=== PATIENT | female | born 1950 | race Caucasian/White ===

== ENCOUNTER 2020-10-17 05:22 | Emergency (ER) | payer MEDICARE, SELFPAY ==
[2020-10-17 05:23] VITALS: BP 158/91; PULSE 78; RESP 16; TEMP 36.4; O2SAT 96; BMI 26.9
--- NOTE | 2020-10-17 05:26 | CTR_ITS ---
PROCEDURE INFORMATION: Exam: CT Head Without Contrast Exam date and time: 10/17/2020 5:29 AM Age: 70 years old Clinical indication: Injury or trauma; Fall; Blunt trauma (contusions or hematomas); Prior surgery; Surgery type: Tumor resection; Patient HX: Patient rolled out of bed this morning and struck forehead on nightstand. C/O frontal head and neck pain. History of astrocytoma. TECHNIQUE: Imaging protocol: Computed tomography of the head without contrast. Radiation optimization: All CT scans at this facility use at least one of these dose optimization techniques: automated exposure control; mA and/or kV adjustment per patient size (includes targeted exams where dose is matched to clinical indication); or iterative reconstruction. COMPARISON: CT head wo con* [id number] 07/07/2016 10:33 AM RADIATION DOSE METRICS: Total DLP (mGy-cm): 941.81 FINDINGS: Brain: There is extensive hypodensity of the right frontal parietal and temporal white matter with extension the hypoattenuation to occlude the white matter of the left frontal lobe. This finding is more extensive today compared with 07/07/2016. There is a 11.6 mm right to left midline shift of the septum pellucidum. This finding is essentially stable compared with previous examination. Cerebral ventricles: There is slit like effacement the anterior horn, body and temporal horns the right ventricle. The 3rd ventricle is displaced to the left approximately 7.5 mm. 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 A follow-up pre and post gadolinium MRI the brain is suggested. Bones/joints: Status post remote right frontal craniotomy. Paranasal sinuses: Visualized sinuses are unremarkable. No fluid levels. Mastoid air cells: Visualized mastoid air cells are well aerated. Soft tissues: Unremarkable. CT/CT head wo con* [id number] IMPRESSION: There are findings that are worrisome for recurrence the patient's known astrocytoma with worsening vasogenic edema within the right frontal, parietal and temporal lobe with extension into the left frontal lobe today. There is mass effect with shift of the septum pellucidum and 3rd ventricle to the left. Further evaluation is finding with pre and post gadolinium MRI imaging of the brain is suggested. Radiation Dose CTDIVOL = (mGy): DLP = 941.81 (mGy-cm)
--- NOTE | 2020-10-17 05:26 | CTR_ITS ---
PROCEDURE INFORMATION: Exam: CT Cervical Spine Without Contrast Exam date and time: 10/17/2020 5:29 AM Age: 70 years old Clinical indication: Injury or trauma; Fall; Blunt trauma; Patient HX: Patient rolled out of bed this morning and struck forehead on nightstand. C/O frontal head and neck pain. History of astrocytoma. C-collar in place. TECHNIQUE: Imaging protocol: Computed tomography images of the cervical spine without contrast. Radiation optimization: All CT scans at this facility use at least one of these dose optimization techniques: automated exposure control; mA and/or kV adjustment per patient size (includes targeted exams where dose is matched to clinical indication); or iterative reconstruction. COMPARISON: No relevant prior studies available. RADIATION DOSE METRICS: Total DLP (mGy-cm): 683.15 FINDINGS: Bones/joints: No acute fracture. Normal alignment. Discs/Spinal canal/Neural foramina: A diffuse loss of disc height is seen within the cervical spine, most prominent from C5-C7 compatible with degenerative disc disease. Lungs: Lung apices are normal. Soft tissues: Unremarkable. CT/CT cervical spin wo con* [id number] IMPRESSION: There are no acute cervical findings. Radiation Dose CTDIVOL = (mGy): DLP = 683.15 (mGy-cm)
--- NOTE | 2020-10-17 05:27 | W.ED.HEATRA ---
Documented by User: José Dave MD 10/17/20 05:32 HPI - Head Injury General: Chief complaint: Fall Stated complaint: FALL Time Seen by Provider: 10/17/20 05:23 Source: patient and EMS Mode of arrival: EMS Limitations: no limitations History of Present Illness: HPI Narrative: 70-year-old female has a history of astrocytoma that was removed back in 2018 and she currently lives in [facility]. EMS was called there she had fell out of her bed and hit her head on the nightstand. Patient states that she had just rolled out and did strike her head and has a contusion to her forehead. States she has a headache that is mild she rates a 4 out of 10 along with some neck pain. She denies any other injuries. She denies any pain to her hips or her upper extremities. She states she does have pain over her right mid thigh patient here is awake and alert and able answer all my questions appropriately. She has no altered mental status. Associated symptoms: Reports neck pain; Deny nausea or vomiting Review of Systems Const: Denies: fever(s), chills, body aches or change in appetite Eyes: Denies: blurry vision or eye discomfort ENMT: Denies: throat pain or dental pain Card: Denies: chest pain Resp: Denies: dyspnea GI: Denies: abdominal pain, nausea, vomiting or diarrhea : Denies: dysuria Musc: Reports: neck pain; Denies: back pain Skin/Breast: Denies: rash Neuro: Reports: headache(s) Psych: Denies: depression Vimal/Lymph: Denies: easy bruising All/Imm: Denies: urticaria Physical Exam Const: COMMON NORMALS: no acute distress, patient oriented x3 and healthy appearing HENMT: COMMON NORMALS: normocephalic HEAD & SCALP: normocephalic OTHER: Contusion to right forehead Eye: COMMON NORMALS: Equal, round and reactive pupils present and EOMs intact bilaterally PUPIL: Yes Equal, round and reactive pupils present Neck/C-Spine: OTHER: Slight tenderness to posterior neck Chest: COMMONS NORMALS: normal inspection of the chest and normal palpation of entire chest wall Resp: COMMON NORMALS: normal respiratory effort, No retractions, No use of accessory muscles and clear to auscultation bilaterally AUSCULTATION: clear to auscultation bilaterally Cardio: COMMON NORMALS: regular rate, regular rhythm and No murmurs present (Cardio) RATE: regular rate RHYTHM: regular rhythm GI: COMMON NORMALS: Normal to inspection, nondistended, normoactive bowel sounds present, Soft to palpation, non-tender and no masses PALPATION: Yes Soft to palpation Extremity: COMMON NORMALS: normal to inspection and full ROM NARRATIVE EXTREMITY EXAM: Slight tenderness to right thigh Neuro: COMMON NORMALS: patient oriented x3, moves all extremities and no focal motor deficits Psych: COMMON NORMALS: mental status grossly normal, Normal thought process present and cooperative THOUGHT PROCESS: Normal thought process present Skin: COMMON NORMALS: no rashes or lesions noted and no wounds GENERAL SKIN EXAM: no rashes or lesions noted Course Vital Signs: Vital signs: Vital Signs Temperature 97.6 F 10/17/20 05:23 Pulse Rate 79 10/17/20 06:52 Respiratory Rate 19 H 10/17/20 06:52 Blood Pressure 153/100 10/17/20 06:52 Pulse Oximetry 97 10/17/20 06:52 Discharge Plan Discharge Patient Disposition: Home Clinical Impression: Brain neoplasm, Fall, Cervicalgia Condition: Stable Discharge Orders: Discharge ED (Routine); Ordered 10/17/20 Ordered By: Jonathan Levy Discharge Diet: Usual diet Discharge Activity: Resume usual activity Patient Instructions: Opioid Safety Activity Restrictions/Additional Instructions: Follow-up with your regular physicians as to the possibility of a recurrence of the brain tumor. Sign Out Sign Out Data: Patient Sign Out occurred on 10/17/20 at 05:47. Patient's care was discussed, and care was transferred from to Jonathan Levy DO. Coding Level of Care Code ED Volunteer Services Specialist for [facility] Fwd Exam Comprehensive Documented by User: Jonathan Levy DO 10/17/20 07:34 HPI - Head Injury General: Chief complaint: Fall Stated complaint: FALL Time Seen by Provider: 10/17/20 05:23 Course Vital Signs: Vital signs: Vital Signs Temperature 97.6 F 10/17/20 05:23 Pulse Rate 79 10/17/20 06:52 Respiratory Rate 19 H 10/17/20 06:52 Blood Pressure 153/100 10/17/20 06:52 Pulse Oximetry 97 10/17/20 06:52 MDM - Head Injury MDM Narrative: Medical decision making narrative: Care assumed from Dr. Dave at change of shift. CT of the neck was unremarkable for acute changes. CT of the head shows what appears to be extension of the tumor however in talking with patient this is an already known entity. She has been having regular MRIs she had within the last month or 2 and they are still watching it. We will go ahead and discharge her whole she can continue to follow with your primary care and neurology teams. Discharge Plan Discharge Patient Disposition: Home Clinical Impression: Brain neoplasm, Fall, Cervicalgia Condition: Stable Discharge Orders: Discharge ED (Routine); Ordered 10/17/20 Ordered By: Jonathan Levy Discharge Diet: Usual diet Discharge Activity: Resume usual activity Patient Instructions: Opioid Safety Activity Restrictions/Additional Instructions: Follow-up with your regular physicians as to the possibility of a recurrence of the brain tumor. Sign Out Sign Out Data: Patient Sign Out occurred on 10/17/20 at 05:47. Patient's care was discussed, and care was transferred from to Jonathan Levy DO. Coding Level of Care Code ED Volunteer Services Specialist for Fatimah Schmidt Exam Comprehensive
--- NOTE | 2020-10-17 05:32 | XRR_ITS ---
PROCEDURE INFORMATION: Exam: XR Right Femur Exam date and time: 10/17/2020 6:04 AM Age: 70 years old Clinical indication: Injury or trauma; Fall; Blunt trauma; Lower leg; Right; Injury date: 10/17/20; Injury details: Fell out of bed TECHNIQUE: Imaging protocol: XR Right femur. Views: 2 views. COMPARISON: No relevant prior studies available. FINDINGS: Bones/joints: Osteopenia. No acute fracture. Soft tissues: Unremarkable. XR/XR femur RT min 2V* [id number] IMPRESSION: No acute osseous abnormality right femur.
[2020-10-17 06:52] VITALS: BP 153/100; PULSE 79; RESP 19; O2SAT 97
[2020-10-17 07:45] VITALS: BP 159/79; PULSE 81; RESP 16; O2SAT 98
== END 2020-10-17 10:34 | disposition home or self-care (01) ==
PROVIDERS: Emergency Provider Family Medicine
DX: M54.2 Cervicalgia (principal); D49.6 Neoplasm of unspecified behavior of brain; W06.XXXA Fall from bed, initial encounter; Y92.122 Bedroom in nursing home as the place of occurrence of the external cause
CPT/HCPCS: 70450; 72125; 73552; 99283